=== PATIENT | male | born 1975 | race Caucasian/White ===

== ENCOUNTER 2025-02-24 06:31 | Day surgery (SDC) | payer OTHER, SELFPAY | END 2025-02-24 09:42 | disposition home or self-care (01) | LOC: GI 06:31 | PROVIDERS: ATTENDING PHYSICIAN Internal Medicine | DX: Z12.11 Encounter for screening for malignant neoplasm of colon (principal); K57.30 Diverticulosis of large intestine without perforation or abscess without bleeding; K62.89 Other specified diseases of anus and rectum | CPT/HCPCS: 45378 ==